=== PATIENT | female | born 1950 | race Caucasian/White ===

== ENCOUNTER 2016-06-28 20:51 | Emergency (ER) | payer OTHER, MEDICAID ==
[~2016-06-28] VITALS: Ht 160 cm; Wt 68.0 kg
[~2016-06-28 20:51] MED LIST: HYDR-507 PO; IBUP100T21 PO
[2016-06-28] MEDS ORDERED: FOLIC ACID 1 MG, THIAMINE HCL 100 MG, MAGNESIUM SULFATE 1 GM, MVI 10 ML in NACL 0.9% 1,... IV ONE (21:00)
[2016-06-28 21:01] VITALS: BP 107/61; PULSE 71; RESP 19; TEMP 97.9; O2SAT 97
--- NOTE | 2016-06-28 21:01 | NUR ---
Patient to ER bed 5 to gown for evaluation. Side rails up. Report given to ADITYA Nava.
--- NOTE | 2016-06-28 21:02 | NUR ---
PT BIB [facility] C/O ALCOHOL INTOXICATION. PER EMT, PT WAS SEEN INTOXICATED AT ROAD SIDE AND NOT COMPREHENDING TO THE QUESTION. PT NOT IN CP DISTRESS NOR NOT IN PAIN OR WOUND. WILL CONTINUE TO MONITOR.
--- NOTE | 2016-06-28 21:03 | NUR ---
ER at bedside examining patient.
[2016-06-28] MEDS ORDERED: MAGNESIUM SULFATE 1 GM/2 ML VIAL ONE (21:19)
[2016-06-28] MEDS ORDERED: MVI 10 ML VIAL IV ONE (21:19)
[2016-06-28] MEDS ORDERED: THIAMINE HCL 100 MG/ML VIAL ONE (21:19)
[2016-06-28] MEDS ORDERED: FOLIC ACID 5 MG/ML VIAL IV ONE (21:19)
[2016-06-28 21:25] LABS: BASOPHILS % (AUTO) 0.3 % (0.0-2.0); EOSINOPHILS # (AUTO) 0.1 K/uL (0.0-0.4); EOSINOPHILS % (AUTO) 1.1 % (0.0-4.0); HEMATOCRIT 42.7 % (36-48); HEMOGLOBIN 14.8 g/dL (12.0-16.0); LYMPHOCYTES # (AUTO) 4.7 K/uL (1.0-5.5); LYMPHOCYTES % (AUTO) 39.8 % (20.5-51.5); MEAN CORPUSCULAR HEMOGLOBIN 33 pg (27-31); MEAN CORPUSCULAR HGB CONC 35 % (32-36); MEAN CORPUSCULAR VOLUME 94 fL (79.0-98.0); MONOCYTES # (AUTO) 0.6 K/uL (0.0-1.0); MONOCYTES % (AUTO) 4.8 % (1.7-9.3); NEUTROPHILS # (AUTO) 6.5 K/uL (1.8-7.7); PLATELET COUNT (AUTO) 246 K/uL (130-430); RED BLOOD CELL COUNT(AUTO) 4.55 MIL/uL (4.2-6.2); RED CELL DISTRIBUTION WIDTH 12.5 % (9.0-15.0); WHITE BLOOD COUNT (AUTO) 11.9 K/uL (4.8-10.8)
[2016-06-28 21:35] LABS: ACETAMINOPHEN 28 ug/mL (1-30); POTASSIUM 4.1 mmol/L (3.5-5.1)
[2016-06-28 21:50] LABS: ANION GAP 12 (5-15); CALCIUM 9.4 mg/dL (8.4-11.0); CHLORIDE 107 mmol/L (98-107); CREATININE 0.94 mg/dL (0.55-1.30); GLUCOSE 129 mg/dL (70-99); SODIUM SERUM 145 mmol/L (136-145); UREA NITROGEN, BLOOD 20 mg/dL (8-21)
[2016-06-28 21:52] LABS: GFR AFRICAN AMERICAN 77 mL/min (>90)
[2016-06-28 21:54] LABS: ALCOHOL, BLOOD 291 mg/dL (<10); SALICYLATE < 1 mg/dL (3-30)
[2016-06-28 21:58] LABS: ALANINE AMINOTRANSFERASE 38 U/L (12-78); ALBUMIN 3.6 g/dL (3.4-4.8); ASPARTATE AMINOTRANSFERASE 31 U/L (10-37); TOTAL BILIRUBIN 0.2 mg/dL (0.0-1.0); TOTAL PROTEIN, SERUM 7.7 g/dL (6.4-8.3)
--- NOTE | 2016-06-29 00:15 | NUR ---
PT SIGNED AMA FORM. PT WAS EXPLAINED AND UNDERSTAND THE CONSEQUENCES AGAINST MEDICAL ADVICE. PT NOT IN CP DISTRESS.
[2016-06-29 00:37] LABS: BARBITURATE, URINE NEGATIVE (NEG <=200); BENZODIAZEPINE, URINE NEGATIVE (NEG <=150); CANNABINOID, URINE NEGATIVE (NEG <=50); COCAINE, URINE NEGATIVE (NEG <=150); METHAMPHETAMINES SCREEN,URINE NEGATIVE (NEG <=500); OPIATE, URINE NEGATIVE (NEG <=100); PHENCYCLIDINE SCREEN,URINE NEGATIVE (NEG <=25); UR TRICYCLIC ANTIDEPRESSANTS NEGATIVE (NEG <=300); URINE AMPHETAMINE NEGATIVE (NEG <=500); URINE METHADONE NEGATIVE (NEG <=200); URINE OXYCODONE SCREEN NEGATIVE (NEG <=100); URINE PROPOXYPHENE SCREEN NEGATIVE (NEG <=300)
== END 2016-06-29 00:15 | disposition left against medical advice (07) ==
LOC: SED 20:51
DX: F10.129 Alcohol abuse with intoxication, unspecified (principal); I10 Essential (primary) hypertension; Z88.5 Allergy status to narcotic agent
CPT/HCPCS: 36415; 80053; 80307; 85025; 96365; 96366; 99285; G0480; G0481; G0482; J3411; J3475; J3490; J7030

== ENCOUNTER 2016-07-09 17:52 | Emergency (ER) | payer OTHER, MEDICAID ==
[~2016-07-09] VITALS: Ht 170.2 cm; Wt 81.6 kg
[2016-07-09 17:57] VITALS: BP 96/48; PULSE 83; RESP 16; TEMP 97; O2SAT 91
== END 2016-07-09 19:05 | disposition home or self-care (01) ==
LOC: SED 17:52
DX: F10.129 Alcohol abuse with intoxication, unspecified (principal); I10 Essential (primary) hypertension; Z88.5 Allergy status to narcotic agent
CPT/HCPCS: 99283

== ENCOUNTER 2020-04-10 18:22 | Emergency (ER) | payer MEDICAID, OTHER ==
[~2020-04-10] VITALS: Ht 162.6 cm; Wt 54.4 kg
[2020-04-10 18:25] VITALS: BP_SYST 116
--- NOTE | 2020-04-10 18:25 | NUR ---
Pt brought to ER for syncopal episode also ETOH pt appears intoxicated and is in possession of alcohol. Pt resting in [facility] at this time, VSS, awaiting MD.
--- NOTE | 2020-04-10 18:25 | NUR ---
Patient to ER bed 2 to gown for evaluation. Side rails up.
[2020-04-10] MEDS ORDERED: NACL 0.9% 1,000 ML IV ONE (18:45)
--- NOTE | 2020-04-10 18:46 | NUR ---
ER at bedside examining patient.
--- NOTE | 2020-04-10 19:21 | NUR ---
REPORT RECEIVED FROM ADITYA LARA
--- NOTE | 2020-04-10 19:31 | NUR ---
PORTABLE X-RAY AT THE BEDSIDE
[2020-04-10 19:37] LABS: BASOPHILS % (AUTO) 0.5 % (0.0-2.0); EOSINOPHILS # (AUTO) 0.1 K/uL (0.0-0.4); EOSINOPHILS % (AUTO) 1.7 % (0.0-4.0); HEMATOCRIT 38.6 % (36-48); HEMOGLOBIN 13.2 g/dL (12.0-16.0); LYMPHOCYTES # (AUTO) 3.4 K/uL (1.0-5.5); LYMPHOCYTES % (AUTO) 41.4 % (20.5-51.5); MEAN CORPUSCULAR HEMOGLOBIN 33 pg (27-31); MEAN CORPUSCULAR HGB CONC 34 % (32-36); MEAN CORPUSCULAR VOLUME 97 fL (79.0-98.0); MONOCYTES # (AUTO) 0.5 K/uL (0.0-1.0); MONOCYTES % (AUTO) 6.6 % (1.7-9.3); NEUTROPHILS % (AUTO) 49.8 % (40.0-70.0); PLATELET COUNT (AUTO) 186 K/uL (130-430); RED BLOOD CELL COUNT(AUTO) 3.97 MIL/uL (4.2-6.2); RED CELL DISTRIBUTION WIDTH 12.9 % (9.0-15.0); WHITE BLOOD COUNT (AUTO) 8.1 K/uL (4.8-10.8)
--- NOTE | 2020-04-10 19:40 | NUR ---
PT REFUSING X-RAY OR HEAD CT SCAN AT THIS TIME.
--- NOTE | 2020-04-10 19:44 | NUR ---
PT ABLE TO VOID, SPECIMEN COLLECTED AND SENT TO LAB
[2020-04-10 19:57] LABS: ANION GAP 11 (5-15); CALCIUM 8.5 mg/dL (8.4-11.0); CHLORIDE 103 mmol/L (98-107); CREATININE 0.81 mg/dL (0.55-1.30); GLUCOSE 90 mg/dL (70-99); POTASSIUM 3.2 mmol/L (3.5-5.1); SODIUM SERUM 138 mmol/L (136-145); UREA NITROGEN, BLOOD 13 mg/dL (8-21)
[2020-04-10 19:58] LABS: GFR AFRICAN AMERICAN 90 mL/min (>90)
[2020-04-10 20:06] LABS: ALANINE AMINOTRANSFERASE 45 U/L (12-78); ALBUMIN 3.7 g/dL (3.4-4.8); ALCOHOL, BLOOD 383 mg/dL (<10); ASPARTATE AMINOTRANSFERASE 48 U/L (10-37); TOTAL BILIRUBIN 0.5 mg/dL (0.0-1.0)
[2020-04-10 20:25] LABS: BARBITURATE, URINE NEGATIVE (NEG <=200); BENZODIAZEPINE, URINE NEGATIVE (NEG <=150); CANNABINOID, URINE NEGATIVE (NEG <=50); COCAINE, URINE NEGATIVE (NEG <=150); METHAMPHETAMINES SCREEN,URINE NEGATIVE (NEG <=500); OPIATE, URINE NEGATIVE (NEG <=100); PHENCYCLIDINE SCREEN,URINE NEGATIVE (NEG <=25); UR TRICYCLIC ANTIDEPRESSANTS NEGATIVE (NEG <=300); URINE AMPHETAMINE NEGATIVE (NEG <=500); URINE METHADONE NEGATIVE (NEG <=200); URINE OXYCODONE SCREEN NEGATIVE (NEG <=100); URINE PROPOXYPHENE SCREEN NEGATIVE (NEG <=300)
[2020-04-10 20:36] LABS: ACETAMINOPHEN < 1 ug/mL (1-30)
--- NOTE | 2020-04-10 20:40 | NUR ---
PT SLEEPING IN BED, NO DISTRESS NOTED. V/S STABLE
--- NOTE | 2020-04-10 21:00 | NUR ---
PT CONTINUES TO REFUSE TO HAVE AN IMAGING DONE STATING "YOU JUST WANT ALL OF MY MONEY". ER DR. BAUMAN MADE AWARE
--- NOTE | 2020-04-10 23:00 | NUR ---
PT SLEEPING IN BED, NO DISTRESS NOTED. V/S STABLE
--- NOTE | 2020-04-11 01:00 | NUR ---
PT SLEEPING IN BED, NO DISTRESS NOTED. V/S STABLE
[2020-04-11 03:01] VITALS: BP_SYST 116
== END 2020-04-11 03:01 | disposition home or self-care (01) ==
LOC: SED 18:22
DX: F10.129 Alcohol abuse with intoxication, unspecified (principal); I10 Essential (primary) hypertension; Z88.5 Allergy status to narcotic agent
CPT/HCPCS: 36415; 80053; 80307; 84484; 85025; 85379; 93005; 96360; 99285; G0480; G0481; G0482; J7030

== ENCOUNTER 2020-04-14 19:25 | Emergency (ER) | payer OTHER ==
[~2020-04-14] VITALS: Ht 160 cm; Wt 70.3 kg
[2020-04-14 19:25] VITALS: BP_SYST 138
--- NOTE | 2020-04-14 19:25 | NUR ---
Patient to ER bed 6 to gown for evaluation. Side rails up. Report given to MORENO.
--- NOTE | 2020-04-14 19:30 | NUR ---
Dr. Fontanez [facility] for pt eval
--- NOTE | 2020-04-14 19:40 | NUR ---
Pt expressed wish to sign out AMA, Dr. Fontanez aware
== END 2020-04-14 19:40 | disposition left against medical advice (07) ==
LOC: SED 19:25
DX: F10.129 Alcohol abuse with intoxication, unspecified (principal)
CPT/HCPCS: 99283

== ENCOUNTER 2021-01-23 17:33 | Emergency (ER) | payer MEDICARE, OTHER ==
[~2021-01-23] VITALS: Ht 165.1 cm; Wt 79.4 kg
[2021-01-23 17:55] VITALS: BP_SYST 141
--- NOTE | 2021-01-23 20:59 | NUR ---
Patient to ER bed 04 to gown for evaluation. Side rails up.
--- NOTE | 2021-01-23 21:00 | NUR ---
Patient BIB by family from home. C/O Laceration x today. Patient reported, while was cooking, accidently cut herself. A/O,X4, left 4th finger swelling, pain, laceration, bleeding control.
--- NOTE | 2021-01-23 21:16 | NUR ---
ER Dr. Dowd at bedside examining patient.
--- NOTE | 2021-01-23 21:49 | NUR ---
Dr. Dowd and EMT Cut her ring.
[2021-01-23] MEDS ORDERED: LIDOCAINE 1%, 20 ML MDV 20 ML ONE ×2 (22:11→22:47)
--- NOTE | 2021-01-23 22:20 | NUR ---
ER Dr. Fontanez at bedside examining patient.
--- NOTE | 2021-01-23 23:00 | NUR ---
X-ray at bedside.
--- NOTE | 2021-01-23 23:16 | NUR ---
Patient has a 2 cm laceration to left 4th finger. Dr. Fontanez applied sutures using sterile technique. Edges well approximated. Site cleansed with NSS. Dressing of Non-Adhesive applied to site. No bleeding noted. Pt tolerated well.
[2021-01-23] MEDS ORDERED: IBUP-1970 PO (23:38)
[2021-01-23] MEDS ORDERED: BACITRACIN 1 GM OINT TP ONE (23:50)
[2021-01-24 00:06] VITALS: BP_SYST 141
--- NOTE | 2021-01-24 00:06 | NUR ---
Patient given written and verbal discharge instructions and verbalizes understanding. ER MD discussed with patient the results and treatment provided. Patient in stable condition. ID arm band removed. Rx of Ibuprofen given. Patient educated on pain management and to follow up with PMD. Pain Scale 1/10. Opportunity for questions provided and answered. Medication side effect fact sheet provided.
== END 2021-01-24 00:06 | disposition home or self-care (01) ==
LOC: SED 17:33
DX: S62.625A Displaced fracture of middle phalanx of left ring finger, initial encounter for closed fracture (principal); S61.215A Laceration without foreign body of left ring finger without damage to nail, initial encounter; I10 Essential (primary) hypertension; Z88.5 Allergy status to narcotic agent; Z79.899 Other long term (current) drug therapy; W23.0XXA Caught, crushed, jammed, or pinched between moving objects, initial encounter; Y93.89 Activity, other specified; Y92.89 Other specified places as the place of occurrence of the external cause; Y99.8 Other external cause status
CPT/HCPCS: 12001; 29130; 73140; 99283; J2001

== ENCOUNTER 2022-10-06 18:56 | Emergency (ER) | payer OTHER ==
[~2022-10-06] VITALS: Ht 167.6 cm; Wt 72.6 kg
[~2022-10-06 18:56] MED LIST changes: +IBUP-1970 PO
[2022-10-06 19:02] VITALS: BP_SYST 133
[2022-10-06] MEDS ORDERED: FOLIC ACID 1 MG, THIAMINE HCL 100 MG, MAGNESIUM SULFATE 1 GM, MVI 10 ML in NACL 0.9% 1,... IV ONE (19:15)
[2022-10-06 19:42] LABS: BASOPHILS # (AUTO) 0.1 K/uL (0.0-0.2); BASOPHILS % (AUTO) 0.7 % (0.0-2.0); EOSINOPHILS # (AUTO) 0.2 K/uL (0.0-0.4); EOSINOPHILS % (AUTO) 1.9 % (0.0-4.0); HEMATOCRIT 40.4 % (36-48); HEMOGLOBIN 13.7 g/dL (12.0-16.0); LYMPHOCYTES # (AUTO) 3.1 K/uL (1.0-5.5); LYMPHOCYTES % (AUTO) 38.7 % (20.5-51.5); MEAN CORPUSCULAR HEMOGLOBIN 32 pg (27-31); MEAN CORPUSCULAR HGB CONC 34 % (32-36); MEAN CORPUSCULAR VOLUME 96 fL (79.0-98.0); MONOCYTES # (AUTO) 0.8 K/uL (0.0-1.0); MONOCYTES % (AUTO) 9.5 % (1.7-9.3); NEUTROPHILS % (AUTO) 49.2 % (40.0-70.0); PLATELET COUNT (AUTO) 191 K/uL (130-430); RED BLOOD CELL COUNT(AUTO) 4.23 MIL/uL (4.2-6.2); RED CELL DISTRIBUTION WIDTH 13.5 % (9.0-15.0); WHITE BLOOD COUNT (AUTO) 8.1 K/uL (4.8-10.8)
[2022-10-06 19:51] LABS: ANION GAP 12 (5-15); CALCIUM 8.9 mg/dL (8.4-11.0); CHLORIDE 105 mmol/L (98-107); CREATININE 0.84 mg/dL (0.55-1.30); GLUCOSE 109 mg/dL (70-99); UREA NITROGEN, BLOOD 19 mg/dL (8-21)
[2022-10-06 20:06] LABS: ALANINE AMINOTRANSFERASE 25 U/L (12-78); ALBUMIN 3.5 g/dL (3.4-4.8); ALCOHOL, BLOOD 335 mg/dL (<10); ASPARTATE AMINOTRANSFERASE 28 U/L (10-37); LIPASE 138 U/L (73-393); TOTAL BILIRUBIN 0.2 mg/dL (0.0-1.0)
== END 2022-10-06 20:27 | disposition left against medical advice (07) ==
LOC: SED 18:56
DX: F10.129 Alcohol abuse with intoxication, unspecified (principal); F17.200 Nicotine dependence, unspecified, uncomplicated; Z88.5 Allergy status to narcotic agent; Z79.899 Other long term (current) drug therapy; Y90.6 Blood alcohol level of 120-199 mg/100 ml
CPT/HCPCS: 99283; 80053; 83690; 85025; 84484; 36415; G0482

== ENCOUNTER 2023-01-01 16:57 | Emergency (ER) | payer OTHER ==
[~2023-01-01] VITALS: Ht 165.1 cm; Wt 74.8 kg
[2023-01-01 17:11] VITALS: BP_SYST 171; PULSE 102; RESP 18; TEMP 98.2; O2SAT 97
[2023-01-01] MEDS ORDERED: HYDR25TA4 PO (22:14)
[2023-01-01 22:20] VITALS: BP_SYST 171; PULSE 102; RESP 18; TEMP 98.2; O2SAT 97
[2023-01-01 23:10] LABS: BILIRUBIN,URINE 2+ (NEGATIVE); BLOOD, URINE 1+ (NEGATIVE); CLARITY/URINE CLOUDY (CLEAR); COLOR,URINE YELLOW (YELLOW); GLUCOSE,URINE NEGATIVE (NEGATIVE); KETONES,URINE 1+ (NEGATIVE); LEUKOCYTE ESTERASE ,URINE 2+ (NEGATIVE); NITRITE, URINE NEGATIVE (NEGATIVE); PH,URINE 5.5 (5.0-8.0); PROTEIN URINE TRACE (NEGATIVE)
[2023-01-01 23:36] LABS: BACTERIA,URINE MODERATE /HPF (None Seen)
[2023-01-01 23:37] LABS: MUCUS,URINE None Seen /LPF (None Seen); URINE AMORPHOUS URATE 3+ /HPF (None Seen)
== END 2023-01-01 22:20 | disposition home or self-care (01) ==
LOC: SED 16:57
DX: F41.9 Anxiety disorder, unspecified (principal); G89.29 Other chronic pain; M54.50 Low back pain, unspecified; I10 Essential (primary) hypertension; J44.9 Chronic obstructive pulmonary disease, unspecified; E11.9 Type 2 diabetes mellitus without complications; Z88.5 Allergy status to narcotic agent; Z79.899 Other long term (current) drug therapy
CPT/HCPCS: 81000; 87086; 99283